=== PATIENT | female | born 1990 | race Caucasian/White ===

== ENCOUNTER 2021-08-05 06:27 | Emergency (ER) | payer MEDICAID, OTHER ==
[~2021-08-05] VITALS: Ht 167.6 cm; Wt 90.0 kg
[~2021-08-05 06:27] MED LIST: ADDERALL
[2021-08-05 07:23] LABS: BASOPHILS % 0.1 % (0.0-2.0); EOSINOPHILS % 0.6 % (0.0-5.0); HEMATOCRIT. 33.3 % (36.0-48.0); HEMOGLOBIN. 10.9 g/dL (12.0-16.0); MEAN CORPUSCULAR HEMOGLOBIN 25.5 pg (28.0-32.0); MEAN CORPUSCULAR VOLUME 78.1 fL (81.0-99.0); MEAN PLATELET VOLUME 7.4 fl (7.4-10.4); MONOCYTES % 4.7 % (2.0-8.0); NEUTROPHILS % 86.6 % (40.0-76.0); PLATELET 278 x1000/uL (130-400); RED BLOOD CELL COUNT 4.26 mill/uL (4.2-5.4); RED CELL DISTRIBUTION WIDTH 14.1 % (11.6-14.6)
[2021-08-05 07:30] LABS: CHLORIDE 107 mEq/L (98-107)
[2021-08-05 07:34] LABS: ETHANOL BLOOD < 10 mg/dL
[2021-08-05 07:36] LABS: HCG SCREEN NEGATIVE
[2021-08-05 09:36] LABS: CLARITY URINE CLEAR (CLEAR); COLOR URINE YELLOW (YELLOW); KETONES URINE NEGATIVE (NEGATIVE); LEUKOCYTE ESTERASE URINE NEGATIVE (NEGATIVE); NITRITE URINE NEGATIVE (NEGATIVE); OCCULT BLOOD URINE NEGATIVE (NEGATIVE); PROTEIN URINE 2+ (NEGATIVE)
[2021-08-05 09:54] LABS: CANNABINOID URINE SCREEN NEGATIVE (NEGATIVE); PHENCYCLIDINE URINE SCREEN NEGATIVE (NEGATIVE)
[2021-08-05 09:55] LABS: *AMPHETAMINES SCREEN URINE NEGATIVE (NEGATIVE); *BARBITURATES SCREEN URINE NEGATIVE (NEGATIVE); *BENZODIAZEPINES SCREEN URINE NEGATIVE (NEGATIVE); *COCAINE SCREEN URINE NEGATIVE (NEGATIVE)
[2021-08-05 09:56] LABS: METHADONE URINE SCREEN NEGATIVE (NEGATIVE); OPIATES URINE SCREEN NEGATIVE (NEGATIVE)
[2021-08-05 10:00] VITALS: BP 126/74
== END 2021-08-05 07:44 | disposition home or self-care (01) ==
LOC: ER 06:27
DX: R55 Syncope and collapse (principal); R41.82 Altered mental status, unspecified
CPT/HCPCS: 36415; 80053; 80305; 80320; 81003; 84703; 85025; 93005; 99285; G0480

== ENCOUNTER 2022-07-13 13:51 | Emergency (ER) | payer MEDICAID, OTHER ==
[~2022-07-13] VITALS: Ht 162.6 cm; Wt 77.0 kg
[2022-07-13] MEDS ORDERED: ONDANSETRON 4MG ODT PO ONE (14:15)
[2022-07-13 14:41] LABS: CLARITY URINE CLOUDY (CLEAR); COLOR URINE YELLOW (YELLOW); KETONES URINE NEGATIVE (NEGATIVE); LEUKOCYTE ESTERASE URINE 2+ (NEGATIVE); NITRITE URINE NEGATIVE (NEGATIVE); OCCULT BLOOD URINE 2+ (NEGATIVE); PH URINE 5.5 (4.5-8.0); PROTEIN URINE 1+ (NEGATIVE); SPECIFIC GRAVITY URINE 1.022 (1.005-1.030); UROBILINOGEN URINE 0.2 E.U./dL (0.2-1.0)
[2022-07-13 15:10] VITALS: BP 113/78
[2022-07-13] MEDS ORDERED: NALO4SPR BOTHNSTRLS (16:35)
[2022-07-15] MEDS ORDERED: CEPH500T MT (19:34)
[2022-07-16 04:12] LABS: NEISSERIA GONORRHOEAE NAA Positive (Negative)
== END 2022-07-13 16:44 | disposition home or self-care (01) ==
LOC: ER 14:03
DX: T40.411A Poisoning by fentanyl or fentanyl analogs, accidental (unintentional), initial encounter (principal); F12.10 Cannabis abuse, uncomplicated; Z11.3 Encounter for screening for infections with a predominantly sexual mode of transmission; Y92.9 Unspecified place or not applicable
CPT/HCPCS: 81003; 81025; 87086; 87186; 87491; 87591; 99283; Q0162